=== PATIENT | female | born 1970 ===

== ENCOUNTER 2016-09-09 18:01 | Inpatient (IN) | payer MEDICARE, MEDICAID ==
[2016-09-09 18:04] VITALS: O2SAT 99
[2016-09-09 19:18] LABS: BASO % 0.5 % (0.0-2.0); EOS % 0.5 % (0.0-4.0); HEMATOCRIT 37.5 % (34.0-47.0); LYMPH # 2.1 K/uL (1.0-4.3); LYMPH % 28.5 % (20.0-40.0); MEAN CELL VOLUME 90.3 fl (81.0-99.0); MEAN CORPUSCULAR HEMOGLOBIN 30.8 pg (27.0-31.0); MEAN CORPUSCULAR HGB CONC 34.1 g/dL (33.0-37.0); MEAN PLATELET VOLUME 10.6 fl (7.2-11.7); MONO # 0.6 K/uL (0.0-0.8); MONO % 8.3 % (0.0-10.0); NEUT # 4.7 K/uL (1.8-7.0); NEUT % 62.2 % (50.0-75.0); RED CELL DISTRIBUTION WIDTH 12.6 % (11.5-14.5); WHITE BLOOD COUNT 7.5 K/uL (4.8-10.8)
[2016-09-09 19:28] LABS: ALB/GLOB RATIO 1.4 (1.0-2.1); ALCOHOL SERUM < 10 mg/dl (0-10); ALKALINE PHOSPHATASE 60 U/L (38-126); ALT/SGPT 38 U/L (9-52); AST/SGOT 40 U/L (14-36); BILIRUBIN,TOTAL 0.9 mg/dl (0.2-1.3); BLOOD UREA NITROGEN 3 mg/dl (7-17); CALCIUM 9.3 mg/dL (8.4-10.2); CARBON DIOXIDE 24 mmol/L (22-30); CHLORIDE 102 mmol/L (98-107); GFR AFRICAN-AMERICAN > 60; GLUCOSE,RANDOM 92 mg/dL (65-105); POTASSIUM 3.5 MMOL/L (3.6-5.0); SODIUM 136 mmol/l (132-148); TOTAL PROTEIN 7.6 G/DL (6.3-8.2)
[2016-09-09 20:16] LABS: RBC URINE 1 /hpf (0-3); URINE BILIRUBIN NEGATIVE (NEGATIVE); URINE BLOOD NEGATIVE (NEGATIVE); URINE COLOR STRAW (YELLOW); URINE GLUCOSE (UA) NEG (Normal); URINE KETONE 20 mg/dL (NEGATIVE); URINE LEUKOCYTE ESTERASE NEG Leu/uL (Negative); URINE PROTEIN NEGATIVE (NEGATIVE); URINE UROBILINOGEN 0.2-1.0 mg/dL (0.2-1.0); WBC URINE 1 /hpf (0-5)
--- NOTE | 2016-09-09 21:10 | ED PDOC ---
HPI: Psych/Substance Abuse Time Seen by Provider: 09/09/16 18:07 Chief Complaint (Nursing): Psychiatric Evaluation Chief Complaint (Provider): Crisis eval History Per: Patient, EMS Additional Complaint(s): Nina Mancera is a 45 year old female, with no pertinent past medical history , who presents to the ED on 09/26/16, via EMS, for a psychiatric evaluation. Per EMS, patient reportedly stated on scene that the Pt was talking to her mother on the phone; however, phone was not on. Pt was sent to ED from her PCP' s office, after he detected bizarre behavior as well, according to EMS. Denies any suicidal/homicidal ideation and offers no acute medical complaints at this time. Of note, patient states that she takes Wellbutrin daily. PMD: Meng Alejo Past Medical History Reviewed: Historical Data, Nursing Documentation, Vital Signs Vital Signs: Last Vital Signs Temp 98.5 F 09/09/16 18:02 Pulse 107 H 09/09/16 18:02 Resp 16 09/09/16 18:02 BP 144/93 H 09/09/16 18:02 Pulse Ox 99 09/09/16 18:02 - Medical History PMH: Depression Denies: Diabetes, Hepatitis, HIV, HTN, Seizures - Family History Family History: States: Unknown Family Hx - Living Arrangements Living Arrangements: With Family - Allergies Allergies/Adverse Reactions: Allergies Allergy/AdvReac Type Severity Reaction Status Date / Time No Known Allergies Allergy Verified 09/09/16 18:02 Review of Systems ROS Statement: Except As Marked, All Systems Reviewed And Found Negative Physical Exam - Reviewed Nursing Documentation Reviewed: Yes Vital Signs Reviewed: Yes - Physical Exam Appears: Positive for: Well, Non-toxic, No Acute Distress Head Exam: Positive for: ATRAUMATIC, NORMAL INSPECTION, NORMOCEPHALIC Skin: Positive for: Normal Color, Warm, DRY Eye Exam: Positive for: EOMI, Normal appearance, PERRL ENT: Positive for: Normal ENT Inspection Neck: Positive for: Normal, Painless ROM Cardiovascular/Chest: Positive for: Regular Rate, Rhythm Respiratory: Positive for: CNT, Normal Breath Sounds Gastrointestinal/Abdominal: Positive for: Normal Exam, Bowel Sounds, Soft Back: Positive for: Normal Inspection Extremity: Positive for: Normal ROM Neurologic/Psych: Positive for: Alert, Oriented - Laboratory Results Result Diagrams: 09/09/16 18:45 09/09/16 18:45 - ECG O2 Sat by Pulse Oximetry: 99 Medical Decision Making Medical Decision Making: Pt calm and cooperative, diagnostics ordered. CBC, COMP and UA resulted WNL UDS (+) Cannabis Alcohol (-) CXR: NAd, as read by JUNIOR EKG interpreted and cleared by ED MD Pt underwent crisis eval and is to be admitted see note. Pt signed in willingly, has remained cooperative throughout stay. DX: schizoaffective, Bipolar Type Dr. chicas Disposition - Clinical Impression Clinical Impression: Schizoaffective disorder, Bipolar I disorder - Patient ED Disposition Is Patient to be Admitted: Yes - Disposition Disposition Time: 21:14 Condition: STABLE - Pt Status Changed To: Hospital Disposition Of: Inpatient - Admit Certification Admit to Inpatient:: After my assessment, the patient will require hospitalization for at least two midnights. This is because of the severity of symptoms shown, intensity of services needed, and/or the medical risk in this patient being treated as an outpatient. - POA Present On Arrival: None
[2016-09-10] MEDS ORDERED: Magnesium Hydroxide Susp 30 ml UD PO PRN (03:51)
[2016-09-10] MEDS ORDERED: DiphenhydrAMINE 50 mg/ml Inj IM PRN (03:51)
[2016-09-10] MEDS ORDERED: Alum-Mag Hydrox-Simethicone Susp (30 mL) PO PRN (03:51)
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
[2016-09-10 08:12] LABS: ALB/GLOB RATIO 1.4 (1.0-2.1); ALKALINE PHOSPHATASE 55 U/L (38-126); ALT/SGPT 35 U/L (9-52); AST/SGOT 38 U/L (14-36); BILIRUBIN,TOTAL 0.9 mg/dl (0.2-1.3); BLOOD UREA NITROGEN 6 mg/dl (7-17); CALCIUM 9.1 mg/dL (8.4-10.2); CARBON DIOXIDE 23 mmol/L (22-30); CHLORIDE 103 mmol/L (98-107); CHOLESTEROL 139 mg/dL (0-199); GFR AFRICAN-AMERICAN > 60; GLUCOSE,RANDOM 82 mg/dL (65-105); POTASSIUM 3.6 MMOL/L (3.6-5.0); SODIUM 137 mmol/l (132-148); TOTAL PROTEIN 7.3 G/DL (6.3-8.2)
[2016-09-10 08:42] LABS: THYROID STIMULATING HORMONE 0.89 mIU/ML (0.46-4.68)
[2016-09-10] MEDS: buPROPion SR 150 MG TABLET PO SCH ×3 (12:39→17:45)
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
[2016-09-11] MEDS: buPROPion SR 150 MG TABLET PO SCH (08:12)
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
[2016-09-12] MEDS: buPROPion SR 150 MG TABLET PO SCH (08:34)
--- NOTE | 2016-09-12 11:22 | PCM.PYCHPN ---
Psychiatric Progress Note - Psychiatric Progress Note Patient seen today, length of contact: Patient evaluated, case discussed with team, chart reviewed, 35 min Patient Chief Complaint: "I don't need any mediations" Problems Identified/Issues Discussed: She paces the hallway, is intrusive, constantly changes socks to avoid the "toxins", goes around smelling/sniffing various objects to check for something unknown, goes into staff office multiple time a day to engage in non-linear conversations about why she does not need treatment or medications, organizes objects all over her bed, refuses to eat at times due to paranoia. Patient continues to be very paranoid and has poor insight into her paranoia. She continues to refuse to take any other medication than Wellbutrin and Clonazepam. Patient submitted a 48 hour letter yesterday, was [place] [facility] [place] and [place]. Bed pending. Medication Change: No Medical Record Reviewed: Yes Mental Status Examination - Cognitive Function Orientation: Person, Place, Situation, Time Memory: Intact Attention: WNL Concentration: WNL Association: Loose Fund of Knowledge: WNL Decription of patient's judgement and insights: Poor I/J - Mood Mood: Anxious - Affect Affect: Broad (Bizarre and labile at times) - Speech Speech: Appropriate - Formal Thought Process Formal Thought Process: Delusions, Paranoia, Loosening of associations Psychotic Thoughts and Behaviors: Very paranoid/delusional, unable to reality test. - Suicidal Ideation Suicidal Ideation: No - Homicidal Ideation Homicidal Ideation: No Goal/Treatment Plan - Goal/Treatment Plan Need for Continued Stay: Remain at risks for inpatient hospitalization, Discharge may exacerbated symptoms, Severe functional impairment Progress Toward Problem(s) and Goals/Treatment Plan: 45 yo female w/ h/o major depressive disorder w/ psychotic features vs. bipolar disorder w/ psychosis referred by her PMD for bizarre and paranoid behavior and decreased sleep. Given the patient's extensive history of psychosis, it is likely that the patient has a primary psychotic disorder, such as schizophrenia vs schizoaffective disorder or bipolar disorder w/ psychotic features rather than MDD w/ psychosis. Patient has poor insight into her current mental status and is not agreeable to taking any other medication than Wellbutrin and Clonazepam which she stopped taking a few weeks ago. Patient submitted a 48 hour letter yesterday, was screened by [facility] [place] and accepted. Bed pending. Plan: -Continue Wellbutrin and Clonazepam as it is the only medication the patient is agreeable to taking; writer technical publications spoke at length with the patient about the need for an antipsychotic and mood stabilizer -Medicine consult appreciated -Transfer to [facility] for [place] admission when a bed is available -Individual, group and ligia gavin Estimated Date of D/C: 09/13/16 - Smoking Cessation Smoking Cessation Initiated: No Reason for not providing: Not indicated
--- NOTE | 2016-09-13 10:09 | PCM.PYCHPN ---
Psychiatric Progress Note - Psychiatric Progress Note Patient seen today, length of contact: Patient evaluated, case discussed with team, chart reviewed, 35 min Patient Chief Complaint: "I don't agree with your treatment" Problems Identified/Issues Discussed: Patient continues to have very poor insight into her current psychosis. She continues to be paranoid, bizarre, intrusive. She paces the hallway, constantly changes socks to avoid the "toxins", goes into staff offices multiple time a day to engage in non-linear conversations about why she does not need treatment or medications, organizes objects all over her bed, refuses to eat at times due to paranoia. Light Bulb Replacer informed patient that she recommends she start an antipsychotic. She has refused all antipsychotics for various reasons, so chief writer recommended Perphenazine as it seems that the patient has not been on this medication in the past. She was given written information on the medication. R/b/se reviewed. She was informed that she has the right to refuse the medication, but the chief writer believes she needs treatment for psychosis. She was also given written information on Wellbutrin and Clonazapem, which are the only medications she agrees to take intermittently. Patient informed that she has been accepted for involuntary admission, but she disagrees that she needs any form of treatment. Bed pending for involuntary admission. DSM 5 Symptoms Update: Schizoaffective Disorder Medication Change: Yes (Start Perphenazine 4 mg PO TID) Medical Record Reviewed: Yes Mental Status Examination - Cognitive Function Orientation: Person, Place, Situation, Time Memory: Intact Attention: WNL Concentration: WNL Association: Loose Fund of Knowledge: WNL Decription of patient's judgement and insights: Poor insight/judgment - Mood Mood: Anxious - Affect Affect: Broad (Bizarre and labile at times) - Speech Speech: Appropriate - Formal Thought Process Formal Thought Process: Delusions, Paranoia, Loosening of associations Psychotic Thoughts and Behaviors: +Very paranoid. Various paranoid delusions. - Suicidal Ideation Suicidal Ideation: No - Homicidal Ideation Homicidal Ideation: No Goal/Treatment Plan - Goal/Treatment Plan Need for Continued Stay: Remain at risks for inpatient hospitalization, Discharge may exacerbated symptoms, Severe functional impairment Progress Toward Problem(s) and Goals/Treatment Plan: 45 yo female w/ h/o major depressive disorder w/ psychotic features vs. bipolar disorder w/ psychosis referred by her PMD for bizarre and paranoid behavior and decreased sleep. Given the patient's extensive history of psychosis, it is likely that the patient has a primary psychotic disorder, such as schizophrenia vs schizoaffective disorder or bipolar disorder w/ psychotic features rather than MDD w/ psychosis. Patient has poor insight into her current mental status and is not agreeable to taking any other medication than Wellbutrin and Clonazepam which she stopped taking a few weeks ago. Patient submitted a 48 hour letter, was [place] [facility] [place] and [place]. Bed pending. Plan: -Start Perphenazine 4 mg PO TID, patient currently refusing -Continue Wellbutrin and Clonazepam as it is the only medication the patient is agreeable to taking; chief writer spoke at length with the patient about the need for an antipsychotic and possibly a mood stabilizer -Medicine consult appreciated -[place] [facility] [place] when a bed is available -Individual, group and ligia gavin Estimated Date of D/C: 09/13/16 (Involuntary bed pending)
[2016-09-13] MEDS: buPROPion SR 150 MG TABLET PO SCH (12:47)
[2016-09-13] MEDS ORDERED: Vitamin A/D oint 60G TP PRN (20:12)
--- NOTE | 2016-09-14 12:47 | PCM.PYCHDC ---
Mental Status Examination - Mental Status Examination Orientation: Person, Place, Situation, Time Memory: Intact Mood: Anxious Affect: Constricted Speech: Loud Attention: Poor Concentration: Poor Association: Loose Fund of Knowledge: WNL Formal Thought Process: Paranoia, Loosening of associations Description of patient's judgement and insight: poor i/j Psychotic Thoughts and Behaviors: pt paranoid. not endorsing any a/v hallucinations. pt appears to have grossly distorted thoughts Suicidal Ideation: No Current Homicidal Ideation?: No Plan: denies at this time Discharge Summary - Discharge Note Reason for Hospitalization: pt with untreated symptoms of psychosis that were impairing her ability to function. refered by her primary care doctor who was concerned with the pt's symptoms and ability to function. Psychiatric History (includes Medical, Family, Personal Hx): pt had been prescribed wellbutrin recently. refusing any other treatment. Consultations:: List each consultation separately and include: 1. Reason for request. 2. Findings. 3. Follow-up Consultations: followed by dr. jeffrey during her hospital stay Summary of Hospital Course include:: 1. Description of specific treatment plan utilized for patients during their course of treatmen. 2. Summarize the time- course for resolution of acute symptoms and/or regressed behaviors. 3. Describe issues identified and worked on during hospitalization. 4. Describe medication utilized. 5. Describe medical problems identified and treated. 6. Reassessment of suicide risk Summary of Hospital Course: please see dr. chicas's admission note for details regarding pt's functioning prior to this hospitalization and the events leading up to the hospitalization. pt was admitted to the unit, placed on routine safety protocols and she met with members of the treatment team daily. team attempted to start the patient on antipsychotic medications, but the patient refused to take any medications except wellbutrin/klonopin. on day of transfer she was refusing wellbutrin. pt submitted a 48 hour notice to leave the hospital. the treatment team was concerned with pt's presentation and asked for a screening at [facility]. the screener found the pt appropriate for an involuntary assessment and the pt was accepted to [facility] for further assessment and treatment. - Final Diagnosis (DSM 5) Condition upon Discharge: STABLE DSM 5: schizoaffective disorder Disposition: HOME/ ROUTINE Follow-up Treatment Plan: pt will follow up with her assessment/treatment/aftercare at [facility] - Smoking Cessation Smoking Cessation Medication prescribed: No - Antipsychotic Medications Pt discharged on 2 or more routine antipsychotic medications: No
[2016-09-14 13:57] VITALS: BP 118/56; PULSE 86; RESP 18; TEMP 98
[2016-09-15 12:42] LABS: ACETONE None Detected (()); ETHANOL None Detected (()); METHANOL None Detected (())
--- NOTE | 2016-09-16 17:22 | CARD ---
APPROVED REPORT EKG Measurement Heart [id number] MD [id number] <Conclusion> Normal sinus rhythm Normal ECG
== END 2016-09-14 15:00 | DRG 885 ==
LOC: H.ER 18:01 → H.ERHOLD 21:16 → H.STEP 09-10 03:41
PROVIDERS: ADMIT Psychiatry & Neurology Psychiatry; ATTEND Psychiatry & Neurology Psychiatry
PROC: GZHZZZZ Group Psychotherapy (ICD-10-PCS; principal; 2016-09-09)
DX: F25.9 Schizoaffective disorder, unspecified (principal); J45.909 Unspecified asthma, uncomplicated; L50.9 Urticaria, unspecified

== ENCOUNTER 2017-09-21 18:19 | Inpatient (IN) | payer MEDICARE, MEDICAID ==
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
[2017-09-21 22:00] LABS: SQUAMOUS EPITHIAL 8 /hpf (0-5); URINE BACTERIA RARE (<OCC); URINE BILIRUBIN NEGATIVE (NEGATIVE); URINE BLOOD NEGATIVE (NEGATIVE); URINE CALCIUM OXALATE CRYSTALS MOD /hpf (<OCC); URINE CLARITY CLOUDY (Clear); URINE COLOR YELLOW (YELLOW); URINE GLUCOSE (UA) NEG (Normal); URINE LEUKOCYTE ESTERASE SMALL Leu/uL (Negative); URINE PROTEIN 100 mg/dL (NEGATIVE); URINE UROBILINOGEN 0.2-1.0 mg/dL (0.2-1.0)
[2017-09-21 22:49] LABS: BARBITURATES, UR NEGATIVE (NEGATIVE); BENZODIAZEPINES, UR NEGATIVE (NEGATIVE); OPIATES, UR NEGATIVE (NEGATIVE); PHENCYCLIDINE, UR NEGATIVE (NEGATIVE)
[2017-09-21 23:12] LABS: BASO % 0.5 % (0.0-2.0); EOS # 0.1 K/uL (0.0-0.7); EOS % 1.5 % (0.0-4.0); HEMOGLOBIN 12.7 g/dL (12.0-16.0); LYMPH # 1.9 K/uL (1.0-4.3); LYMPH % 28.8 % (20.0-40.0); MEAN CELL VOLUME 90.7 fl (81.0-99.0); MEAN CORPUSCULAR HEMOGLOBIN 31.2 pg (27.0-31.0); MEAN CORPUSCULAR HGB CONC 34.4 g/dL (33.0-37.0); MEAN PLATELET VOLUME 11.2 fl (7.2-11.7); MONO # 0.8 K/uL (0.0-0.8); MONO % 12.2 % (0.0-10.0); NEUT # 3.8 K/uL (1.8-7.0); NRBC % 0.1 % (0.0-0.0); RBC 4.06 Mil/uL (3.80-5.20); WHITE BLOOD COUNT 6.6 K/uL (4.8-10.8)
[2017-09-21 23:20] LABS: ALB/GLOB RATIO 1.3 (1.0-2.1); ALBUMIN 4.3 g/dL (3.5-5.0); ALT/SGPT 47 U/L (9-52); AST/SGOT 58 U/L (14-36); BLOOD UREA NITROGEN 16 mg/dl (7-17); CALCIUM 9.2 mg/dL (8.4-10.2); GFR AFRICAN-AMERICAN > 60; GFR NON-AFRICAN AMERICAN > 60
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
--- NOTE | 2017-09-22 13:56 | ED PDOC ---
- Laboratory Results Result Diagrams: 09/21/17 22:40 09/21/17 22:40 - ECG O2 Sat by Pulse Oximetry: 99 Medical Decision Making Medical Decision Making: Time: 07:00 Patient is signed over to me by Dr. Sandoval pending bed transfer in [place]. 17:00 Patient is signed out to Dr. Keen, pending [facility]. Scribe Attestation: Documented by Phyllis Cole acting as a scribe for Bro Domínguez MD. Scribe Attestation: All medical record entries made by the Scribe were at my direction and personally dictated by me. I have reviewed the chart and agree that the record accurately reflects my personal performance of the history, physical exam, medical decision making, and the department course for this patient. I have also personally directed, reviewed, and agree with the discharge instructions and disposition. Disposition - Clinical Impression Clinical Impression: Paranoid behavior, Homicidal ideation, PTSD (post-traumatic stress disorder) - Disposition Condition: FAIR Additional Instructions: Case endorsed to GLADYS Sánchez at 0000 pending re-evaluation, [facility] screener, and further disposition. Pertinent details reviewed. Forms: [employer] (Qatari)
[2017-09-22 23:05] VITALS: O2SAT 96
--- NOTE | 2017-09-22 23:29 | ED PDOC ---
- Laboratory Results Result Diagrams: 09/21/17 22:40 09/21/17 22:40 - ECG ECG: Positive for: Interpreted By Me ECG Rhythm: Positive for: Normal QRS, Normal ST Segment, Sinus Rhythm O2 Sat by Pulse Oximetry: 96 Pulse Ox Interpretation: Normal - Radiology X-Ray: Interpreted by Me X-Ray Interpretation: No Acute Disease - Progress ED Course And Treament: 5p Rec'd endorsement from Dr Domínguez. Pt for transfer to [facility] for psych admission. Pending bed availability. 8p Pt now reports that she would like to sign in to this hospital. She reports that she didn't earlier because she was too scared and feels more lucid now. 11p CW DW Dr Cueto psych. Accepted for admssion. Disposition - Clinical Impression Clinical Impression: Schizoaffective disorder, Bipolar 1 disorder - POA Present On Arrival: None - Disposition Disposition: Admitted as In-Patient Disposition Time: 17:00 Condition: FAIR Additional Instructions: Case endorsed to GLADYS Sánchez at 0000 pending re-evaluation, [facility] screener, and further disposition. Pertinent details reviewed. Forms: [employer] (Togolese)
[2017-09-23] MEDS ORDERED: DiphenhydrAMINE 50 mg/ml Inj IM PRN (01:26)
[2017-09-23] MEDS ORDERED: Alum-Mag Hydrox-Simethicone Susp (30 mL) PO PRN (01:26)
[2017-09-23] MEDS ORDERED: Magnesium Hydroxide Susp 30 ml UD PO PRN (01:26)
--- NOTE | 2017-09-23 03:18 | PCM.BM ---
<Elis Vidales - Last Filed: 09/23/17 03:16> Treatment Plan Problems - Problems identified on initial assessmt Delusions Date Initiated: 09/23/17 Time Initiated: 03:16 Assessment reference: NA Status: Active Medication nonadherence Date Initiated: 09/23/17 Time Initiated: 03:17 Assessment reference: NA Status: Active Treatment assets and liabiliti Patient Assests: self-reliant, ADL independent, good support system, negotiates basic needs Patient Liabilities: live alone - Milieu Protocol Maintain good personal hygiene: daily Encourage regular showers, daily Assist patient to perform ADL's, every shift Remind patient to perform daily oral care Conduct patient checks and document Observation sheet: Q15 minutes Maintain personal safety: every shift Educate patient to report safety concerns to staff, every shift Monitor environment for contraband/sharps Medication safety: Monitor for expected outcome, potential side effects: every shift, Assess barriers to learning: every shift, Assess readiness for medication education: every shift <Emilie Jensen - Last Filed: 09/24/17 16:34> Treatment assets and liabiliti Patient Assests: self-reliant, ADL independent, negotiates basic needs, good past tx response Patient Liabilities: live alone, other (poor insight, impaired coping skills/ judgment, resistant to tx) Family Contact Family involvement: Patient does not wish Family/SO involvement Family contact: Patient declines to allow family contact at present - Goals for Treatment Patient goals for treatment: Patient to continue stabilization on 3NP through medication management and group/supportive therapy. Patient to be encouraged to attend groups regularly to promote reality testing, compliance, and improve insight, coping skills, organization of thoughts and self-esteem. Patient to be provided with referral for appropriate level of aftercare to reduce risk of future hospitalizations and ensure safety in the community. Discharge/Continuing Care - Education Needs Education Needs: Patient Medication, Patient Diagnosis/Disease Process, Patient Coping Skills, Patient Community resources, Patient Aftercare Safety Plan - Discharge Discharge Criteria: Tolerates medication w/o severe side effects, Free of Suicidal thoughts, Free of paranoid thoughts, Free of agitation, Normal sleep pattern, Ability to care for self, Reduction of target symptoms Discharge to:: Home, With Family - Treatment Team Participation Patient/Family/SO Statement: 09/24/17 16:36 Pt. remains actuely psychotic. Pt. presents a disorganized, paranoid and easily irritable. Insight/Coping skills/Judgment grossly impaired. Pt. attended tx team but was unable to fully engage in discussion regarding tx goals or precursors to hospitalization. Pt. refused to sign treatment plan but insisted on writing medication changes agreed to on bottom of form. Pt. continues to be selectively noncompliant with medications. Pt. awaiting screening by [facility]. Discussed with Family/SO: No Was Patient/Family/SO present at Treatment Team Meeting: Yes <Kathleen Ivory - Last Filed: 09/25/17 12:18> - Diagnosis (1) Psychosis Status: Acute Interventions: 09/25/17 12:18 pharmacotherapy psychotherapy
--- NOTE | 2017-09-23 09:31 | RAD ---
HISTORY: admission COMPARISON: No prior. FINDINGS: LUNGS: No active pulmonary disease. PLEURA: No significant pleural effusion identified, no pneumothorax apparent. CARDIOVASCULAR: Normal. OSSEOUS STRUCTURES: Dextro convex curvature of thoracic spine. No significant abnormalities. VISUALIZED UPPER ABDOMEN: Normal. OTHER FINDINGS: None. IMPRESSION: No active disease.
[2017-09-23] MEDS: Vitamin A/D oint 60G TP PRN (12:54)
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
--- NOTE | 2017-09-23 20:10 | CP.PCM.CON ---
History of Present Illness - History of Present Illness History of Present Illness: CC: paranoia 46 yo female with a past medical history of schizoaffective disorder, bipolar disorder, paranoid behavior, admitted to the inpatient psychiatric unit. The patient states that she has no medical problems other than some intermittent back pain. Also complaining of chronic right wrist discomfort. Patient denies chest pain, shortness of breath, fevers, chills, nausea, vomiting , diarrhea, headache. All of the patient's questions were answered at the bedside. Review of Systems - Review of Systems Review of Systems: A 12 point review of systems was conducted and found to be negative other than what was mentioned in the HPI. Past Patient History - Past Social History Alcohol: None Drugs: Denies - CARDIAC Hx Cardiac Disorders: No Hx Hypertension: No - PULMONARY Hx Respiratory Disorders: No - NEUROLOGICAL Hx Neurological Disorder: No Hx Seizures: No - HEENT Hx HEENT Problems: No - RENAL Hx Chronic Kidney Disease: No - ENDOCRINE/METABOLIC Hx Endocrine Disorders: No - HEMATOLOGICAL/ONCOLOGICAL Hx Blood Disorders: No Hx Human Immunodeficiency Virus (HIV): No - INTEGUMENTARY Hx Dermatological Problems: No - MUSCULOSKELETAL/RHEUMATOLOGICAL Hx Musculoskeletal Disorders: No - GASTROINTESTINAL Hx Gastrointestinal Disorders: No - GENITOURINARY/GYNECOLOGICAL Hx Genitourinary Disorders: No - PSYCHIATRIC Hx Substance Use: No - SURGICAL HISTORY Hx Surgeries: No - ANESTHESIA Hx Anesthesia: No Meds Allergies/Adverse Reactions: Allergies Allergy/AdvReac Type Severity Reaction Status Date / Time No Known Allergies Allergy Verified 09/21/17 18:30 - Medications Medications: Current Medications Acetaminophen (Tylenol 325mg Tab) 650 mg PO Q4 PRN PRN Reason: Pain, moderate (4-7) Al Hydrox/Mg Hydrox/Simethicone (Maalox Plus 30 Ml) 30 ml PO Q4 PRN PRN Reason: Dyspepsia Aripiprazole (Abilify) 10 mg PO DAILY KASEY Diphenhydramine HCl (Benadryl) 50 mg IM Q6 PRN PRN Reason: Extrapyramidal S/S Unable PO Diphenhydramine HCl (Benadryl) 50 mg PO Q6 PRN PRN Reason: Extrapyramidal Symptoms Haloperidol (Haldol) 5 mg PO Q4 PRN PRN Reason: Agitation Haloperidol Lactate (Haldol) 5 mg IM Q4 PRN PRN Reason: Agitation, Unable to Take PO Ibuprofen (Motrin Tab) 600 mg PO Q6 PRN PRN Reason: back pain Lorazepam (Ativan) 2 mg IM Q4 PRN PRN Reason: Anxiety/Agitation,Unable PO Lorazepam (Ativan) 1 mg PO Q4 PRN PRN Reason: Anxiety/Agitation Magnesium Hydroxide (Milk Of Magnesia) 30 ml PO HS PRN PRN Reason: Constipation Trazodone HCl (Desyrel) 100 mg PO HS KASEY Vitamin A (Vitamin A&D) 1 applic TP Q8 PRN PRN Reason: Allergy symptoms Last Admin: 09/23/17 12:54 Dose: 1 applic Physical Exam - Additional Findings Additional findings: Physical exam: Constitutional- cooperative, awake, alert Head- NCAT, PERRL Eye- PERRL, EOMI ENT- normal exam, MMM. Neck- normal inspection, supple, no JVD Respiratory- CTAB, no wheezes rales rhonchi Cardiovascular- RRR, +S1, +S2 no MRG GI/Abdominal- normal bowel sounds, soft, no mass, no hsm Skin- + Small hematoma right antecubital fossa at IV site. warm, dry Extremities Exam- normal capillary refill, normal inspection Neurological Exam- alert, awake, oriented Psych- normal mood, normal affect Results - Vital Signs Recent Vital Signs: Last Vital Signs Temp 97.9 F 09/23/17 17:00 Pulse 103 H 09/23/17 17:00 Resp 20 09/23/17 09:00 BP 123/89 09/23/17 17:00 Pulse Ox 96 09/22/17 23:29 - Labs Result Diagrams: 09/21/17 22:40 09/21/17 22:40 Assessment & Plan - Assessment and Plan (Free Text) Plan: ASSESSMENT/PLAN 1) Left forearm pain, small hematoma at IV site - Cold compress PRN 2) Musculoskeletal back pain - Motrin 600 mg po q 6 hours PRN for pain 3) Schizophrenia, disorganized type - Management as per psychiatry
--- NOTE | 2017-09-23 21:20 | CARD ---
APPROVED REPORT EKG Measurement Heart [id number] <Conclusion> Normal sinus rhythm Normal ECG
[2017-09-24 07:16] LABS: T4 9.81 ug/dl (5.5-11.0)
[2017-09-24] MEDS: Vitamin A/D oint 60G TP PRN (11:07)
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
--- NOTE | 2017-09-25 13:13 | PCM.PYCHPN ---
Psychiatric Progress Note - Psychiatric Progress Note Patient seen today, length of contact: pt evaluated discussed with team chart reviewed Patient Chief Complaint: I refuse to take medications Problems Identified/Issues Discussed: pt evaluated , continues to refuse medications, irritable angry , no insight into illness. delusional thought process , delusions of persecution and disorganized speech pt seen in the hallway , anxious talking to self and internally preoccupied, isolative not attending groups, she denied any current suicidal or homicidal ideations, denied command hallucinations Medical Problems: multiple inpatient hospitalizations, history of non compliance DSM 5 Symptoms Update: schizophrenia disorganized type Medication Change: No Medical Record Reviewed: Yes Mental Status Examination - Cognitive Function Orientation: Person, Place Memory: Intact Attention: Poor Concentration: Poor Association: Loose Fund of Knowledge: Poor Decription of patient's judgement and insights: poor insight and impaired judgement - Mood Mood: Anxious - Affect Affect: Constricted, Depressed - Speech Speech: Soft - Formal Thought Process Formal Thought Process: Hallucinations, Delusions, Paranoia, Loosening of associations, Circumstantial Psychotic Thoughts and Behaviors: somatic delusions, delusions of persecution - Suicidal Ideation Suicidal Ideation: No - Homicidal Ideation Homicidal Ideation: No Goal/Treatment Plan - Goal/Treatment Plan Need for Continued Stay: Remain at risks for inpatient hospitalization, Severe depression anxiety, Discharge may exacerbated symptoms, Severe functional impairment Progress Toward Problem(s) and Goals/Treatment Plan: haldol 2mg bid and klonopin 0.5mg qhs encourage medication compliance pt referred for screening for involuntary admission and accepted group and supportive therapy Estimated Date of D/C: 09/26/17
[2017-09-25 16:39] VITALS: BP 130/82; PULSE 108; RESP 20; TEMP 97.9
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
== END 2017-09-26 01:05 | DRG 885 ==
LOC: H.ER 18:19 → H.ERHOLD 09-22 23:30 → H.PSYCH 09-23 01:22
PROVIDERS: ADMIT Psychiatry & Neurology Psychiatry; ATTEND Psychiatry & Neurology Psychiatry
PROC: GZHZZZZ Group Psychotherapy (ICD-10-PCS; principal; 2017-09-22)
PROC: GZ58ZZZ Individual Psychotherapy, Cognitive-Behavioral (ICD-10-PCS; 2017-09-22)
DX: F20.1 Disorganized schizophrenia (principal); F31.9 Bipolar disorder, unspecified; F12.90 Cannabis use, unspecified, uncomplicated; F43.10 Post-traumatic stress disorder, unspecified; R45.850 Homicidal ideations; Z91.14 Patient's other noncompliance with medication regimen; Z91.19 Patient's noncompliance with other medical treatment and regimen; S50.12XA Contusion of left forearm, initial encounter; Y84.8 Other medical procedures as the cause of abnormal reaction of the patient, or of later complication, without mention of misadventure at the time of the procedure; Y92.239 Unspecified place in hospital as the place of occurrence of the external cause